=== PATIENT | female | born 1995 | race Hispanic/Latino ===

== ENCOUNTER 2018-02-01 12:51 | Outpatient (CLI) | payer OTHER ==
--- NOTE | 2018-02-01 15:59 | ULT ---
OB ULTRASOUND: DATE: 02/01/18. HISTORY: Positive , evaluate size and dates. FINDINGS: There is evidence of a single intrauterine gestation. Cardiac Doppler demonstrates heart tones with a heart rate of 153 b.p.m. Imaging of the lower uterine segment was not obtained to dete rmine whether there is evidence of placenta previa or the exact orientation of the fetus, although th e fetus is reported to be in cephalic presentation. The placenta is located anteriorly, but a low-ly ing placenta or placenta previa could not be evaluated or excluded based on this exam. There is a normal amount of amniotic fluid with an amniotic fluid index measuring 11.84 cm. MEASUREMENTS: Biparietal diameter 6.35 cm, 22 weeks 2 days Head circumference 19.79 cm, 22 weeks Abdominal circumference 18.59 cm, 23 weeks 3 days Femur length 4.2 cm, 23 weeks 5 days. The estimated gestational age by ultrasound is 22 weeks and 4 days with an MARY KATE on 06/03/18. The estimated weight by ultrasound is 581.47 gm (1 pound 5 ounces). This represents greater th an 97th percentile for weight. The cerebellum is not well visualized due to shadowing in this region. The visualized portions of th e spine, 4-chamber heart, cord insertion, and urinary bladder demonstrate a normal sonographic appearance. Three-vessel cord is not definite delineated on this examination. The kidneys are not w ell evaluated. The stomach was not imaged. No definite anomalies are seen. IMPRESSION: 1. Single intrauterine gestation with heart tones documented. Estimated gestational age by ul trasound is 22 weeks and 4 days with an estimated date of delivery on 06/03/18. 2. Imaging of the lower uterine segment was not obtained to evaluate for evidence of placenta previa or low-lying placenta. In addition, the exact orientation of the fetus is also difficult to determi ne without imaging of the lower uterine segment. An attempt will be made to call the patient back fo r additional imaging. These findings were discussed with the cytopathology technologist at this time, a nd an addendum will be issued once the patient returns for additional imaging. 3. Limited evaluation of the anatomical structures, but no definite anomalies are seen. 4. Amniotic fluid index measures 11.84 cm. POS: [facility]
== END 2018-02-01 12:52 | disposition home or self-care (01) ==
LOC: NAV ULT 12:51
PROVIDERS: ATTEND Family Medicine
DX: Z34.82 Encounter for supervision of other normal pregnancy, second trimester (principal); Z3A.22 22 weeks gestation of pregnancy
CPT/HCPCS: 76805